=== PATIENT | female | born 1945 | race Caucasian/White ===

== ENCOUNTER 2018-01-29 09:50 | Day surgery (SDC) | payer OTHER ==
[~2018-01-29] VITALS: Ht 157.5 cm; Wt 72.1 kg
[~2018-01-29 09:50] MED LIST: CHOL10002 PO; HYDCHL25 PO; LEVSOD50 PO; MULTI VITAMIN1 EACH PO; PARO25 PO; POTCHL10ER PO; SIMV20 PO
== END 2018-01-29 22:44 | disposition home or self-care (01) ==
LOC: ORSCMMR 09:50 → ORD 11:00 → ORSCMMR 11:00
PROVIDERS: Internal Medicine Gastroenterology
PROC: 0DJD8ZZ Inspection of Lower Intestinal Tract, Via Natural or Artificial Opening Endoscopic (ICD-10-PCS; principal; 2018-01-29 11:00)
DX: R19.5 Other fecal abnormalities (principal); K64.8 Other hemorrhoids; K57.30 Diverticulosis of large intestine without perforation or abscess without bleeding; K63.89 Other specified diseases of intestine; P28.3 Primary sleep apnea of newborn; I10 Essential (primary) hypertension; E78.00 Pure hypercholesterolemia, unspecified; F32.9 Major depressive disorder, single episode, unspecified; E03.9 Hypothyroidism, unspecified; Z79.899 Other long term (current) drug therapy
CPT/HCPCS: J2250; J3010; J7030

== ENCOUNTER → 2018-04-29 | Outpatient (CLI) | payer OTHER | LOC: LAB SHORT 17:41 → LAB 17:41 | DX: N89.8 Other specified noninflammatory disorders of vagina (principal) | CPT/HCPCS: 87070; 87205 ==

== ENCOUNTER → 2018-10-21 | Outpatient (CLI) | payer OTHER | END | disposition home or self-care (01) | LOC: LAB SHORT 18:07 → LAB 18:07 | DX: N95.2 Postmenopausal atrophic vaginitis (principal) | CPT/HCPCS: 87070; 87205 ==

== ENCOUNTER 2019-05-01 16:20 | Inpatient (IN) | payer OTHER ==
[~2019-05-01] VITALS: Ht 157.5 cm; Wt 71.7 kg
[~2019-05-01 16:20] MED LIST changes: -PARO25 PO; +PARO30 PO; -SIMV20 PO; +Zocor20 MG PO
[2019-05-01 17:06] LABS: BASOPHILS ABSOLUTE AUTO 0.07 K/mm3 (0.00-0.23); BASOPHILS PERCENT AUTO 1 % (0-2); EOSINOPHILS ABSOLUTE AUTO 0.09 K/mm3 (0.00-0.68); EOSINOPHILS PERCENT AUTO 1 % (0-6); Hematocrit 32.3 % (33.0-51.0); Hemoglobin 10.4 g/dL (11.5-16.0); IMMATURE GRAN ABSOLUTE AUTO 0.04 K/mm3 (0.00-0.10); IMMATURE GRAN PERCENT AUTO 0 % (0-1); LYMPHOCYTES ABSOLUTE AUTO 1.94 K/mm3 (0.84-5.20); LYMPHOCYTES PERCENT AUTO 15 % (21-46); MONOCYTES ABSOLUTE AUTO 0.97 K/mm3 (0.16-1.47); MONOCYTES PERCENT AUTO 7 % (4-13); Mean Corpuscular HGB 29.9 pg (26.0-34.0); Mean Corpuscular HGB Conc 32.2 g/dL (31.5-36.5); Mean Corpuscular Volume 93 fL (80-100); Mean Platelet Volume 10.7 fL (9.1-12.4); NEUTROPHILS PERCENT AUTO 77 % (41-73); Platelet Count 239 K/mm3 (150-400); RDW Standard Deviation 47.9 fL (35.1-46.3); Red Blood Cell Count 3.48 M/mm3 (3.80-5.20); White Blood Cell Count 13.21 K/mm3 (4.00-11.30)
[2019-05-01 17:19] LABS: Alanine Aminotransfer (ALT/SGP 17 U/L (12-78); Albumin, Blood 2.9 g/dL (3.4-5.0); Albumin/Globulin Ratio 1.1 (0.8-1.8); Alk Phos 33 U/L (50-136); Anion Gap 5 mmol/L (6-16); Aspartate Aminotrans (AST/SGOT 19 U/L (12-37); Bilirubin, Total 0.3 mg/dL (0.1-1.0); Blood Urea Nitrogen 42 mg/dL (8-24); CO2, Blood 27 mmol/L (21-32); Calcium, Blood 7.8 mg/dL (8.5-10.1); Chloride, Blood 108 mmol/L (98-108); Globulin, Blood 2.6 g/dL (2.2-4.0); Glomerular Filtration Rate >60 (60-); Glucose, Blood 121 mg/dL (70-99); Potassium, Blood 3.2 mmol/L (3.5-5.5); Sodium, Blood 140 mmol/L (136-145); Total Protein, Blood 5.5 g/dL (6.4-8.2)
[2019-05-01] MEDS ORDERED: LEVSOD75 PO (17:38)
[2019-05-01] MEDS ORDERED: ESTRADIOL42.5 GM VAG (17:40)
[2019-05-01 18:27] LABS: International Normalized Ratio 1.03; Prothrombin Time Results 10.9 Sec (9.7-11.5)
[2019-05-01 21:27] LABS: Percent Saturation 23.5 % (15.0-50.0)
[2019-05-01 21:54] LABS: Hematocrit 30.7 % (33.0-51.0); Hemoglobin 9.9 g/dL (11.5-16.0); Mean Corpuscular HGB 30.1 pg (26.0-34.0); Mean Corpuscular HGB Conc 32.2 g/dL (31.5-36.5); Mean Corpuscular Volume 93 fL (80-100); Mean Platelet Volume 10.4 fL (9.1-12.4); Platelet Count 235 K/mm3 (150-400); RDW Standard Deviation 47.9 fL (35.1-46.3); Red Blood Cell Count 3.29 M/mm3 (3.80-5.20); White Blood Cell Count 13.06 K/mm3 (4.00-11.30)
--- NOTE | 2019-05-01 22:47 | NUR ---
PCU ADMIT PT BROUGHT TO PCU RM 04 FROM ER BY CAROL @ 2054. PT A&O X4. PT ABLE TO STAND AND AMBULATE FROM [facility] TO PCU BED INDEPENDENTLY W/ SBA FOR PRECAUTION. PT'S DAUGHTER AND SON-IN-LAW AT BEDSIDE. PT REPORTS BLACK STOOL WELL BLOODY EMESIS AND "PASSING OUT" AT HOME TODAY PRIOR TO HOSPITALIZATION. PT DENIES NAUSEA, LIGHTHEADEDNESS, DIZZINESS AT THIS TIME. PT VSS. PT NPO. GI CONSULT CALLED TO ANSWERING SERVICE. NS GTT INFUSING PER ORDERS X1 BAG. PT/FAMILY ORIENTED TO UNIT/CURRENT COURSE OF PLAN. WILL CONTINUE TO MONITOR AND PROVIDE CARE.
--- NOTE | 2019-05-02 00:58 | NUR ---
MD OLIVA IN ROOM TO SEE PT. W/ ORDERS FOR PT TO BE NPO W/ OKAY FOR WATER ONLY UNTIL STRICT NPO @ 0800 W/ PLAN FOR SCOPE TODAY.
[2019-05-02 04:33] LABS: Hematocrit 26.2 % (33.0-51.0); Hemoglobin 8.4 g/dL (11.5-16.0); Mean Corpuscular HGB 30.4 pg (26.0-34.0); Mean Corpuscular HGB Conc 32.1 g/dL (31.5-36.5); Mean Corpuscular Volume 95 fL (80-100); Mean Platelet Volume 10.9 fL (9.1-12.4); Platelet Count 206 K/mm3 (150-400); RDW Coefficient Variation 14.2 % (11.7-14.2); RDW Standard Deviation 49.1 fL (35.1-46.3); Red Blood Cell Count 2.76 M/mm3 (3.80-5.20); White Blood Cell Count 10.33 K/mm3 (4.00-11.30)
--- NOTE | 2019-05-02 05:49 | NUR ---
SHIFT SUMMARY PT A&O X4. VSS. PT NPO EXCEPT FOR WATER UNTIL COMPLETELY NPO @ 0800 FOR SCOPE TODAY. NO BM OR EMESIS THIS SHIFT. PT FAMILY AT BEDSIDE. WILL CONTINUE TO MONITOR AND PROVIDE CARE UNTIL REPORT OFF TO DAY SHIFT RN.
--- NOTE | 2019-05-02 07:32 | NUR ---
EMESIS & WEAKNESS PT C/O FEELING LIKE "I'M GOING TO PASS OUT" WHILE SITTING UPRIGHT IN BED FOLLOWED BY EPISODE OF DARK BROWN/RED LIQUID EMESIS. EPISODE OF INCONTINENCE W/ VOMITING. SKIN CLAMMY. PT ASSISTED BACK INTO DOSS'S POSITION. IV ZOFRAN AND PROTONIX PROVIDED. VSS, THOUGH BP LOWER, SEE VS. PT ASSISTED W/ IN BED SPONGE BATH AND ORAL CARE. PT CONTINUES TO BE NPO W/ WATER ONLY UNTIL COMPLETELY NPO @ 0800 FOR SCOPE TODAY. REPORT GIVEN TO DAY SHIFT RN. PT'S DAUGHTER AT BEDSIDE.
--- NOTE | 2019-05-02 08:30 | NUR ---
PT RESTING IN BED, DAUGHTER IN RM. HAD EPISODE OF NAUSEA AND EMESIS EARLIER THIS AM, DENIES NOW. DR. SANFORD IN . DISCUSSED EARLIER EPISODE, PT HAVING LOWER BP'S. REC'D ORDER FOR IVF AND CHANGED PO KCL TO IV SINCE PT NPO. ASSESS COMPLETE. AWAITING DR OLIVA FOR PROCEDURE THIS AM. CONT TO MONITOR.
--- NOTE | 2019-05-02 10:50 | NUR ---
PT OFF TO DAY SURGERY VIA CAROL
--- NOTE | 2019-05-02 11:14 | NUR ---
05/02/19 1114 Domenica Pedraza History, Chart, Medications and Allergies reviewed before start of procedure.PATIENT DETERMINED TO BE ASA APPROPRIATE FOR PROPOFOL SEDATION PRIOR TO START OF PROCEDURE BY .MONITOR INTACT WITH CONTINUOUS PULSE OXIMETRY AND INTERMITTENT BP.3-LEAD EKG REVIEWED WITH PHYSICIAN PRIOR TO START OF PROCEDURE.O2 VIA N/C INTACT THROUGHOUT SEDATION/PROCEDURE.
--- NOTE | 2019-05-02 17:05 | NUR ---
REPORT GIVEN TO NOC RN, DORETHA. PT RESTING IN BED. DAUGHTER IN RM. VSS WITH BP IMPROVED. PROTONIX GTT INFUSING. PT HAD UPPER ENDO EARLIER WITH DR OLIVA, FOUND TO HAVE LG GASTRIC ULCER, TOOK CLIPS, EPI, AND CAUDERIZING TO RESOLVE ACTIVE BLEEDING PER . NO NAUSEA, EMESIS, OR ADDITIONAL MAROON STOOLS SINCE PROCEDURE. DORETHA TO ASSUME CARE FOR REST OF SHIFT AND T/O NOC.
[2019-05-02 18:20] LABS: Mean Corpuscular HGB 30.4 pg (26.0-34.0); Mean Corpuscular HGB Conc 32.6 g/dL (31.5-36.5); Mean Corpuscular Volume 94 fL (80-100); Mean Platelet Volume 10.6 fL (9.1-12.4); Platelet Count 162 K/mm3 (150-400); RDW Coefficient Variation 14.3 % (11.7-14.2); RDW Standard Deviation 48.4 fL (35.1-46.3); Red Blood Cell Count 1.84 M/mm3 (3.80-5.20); White Blood Cell Count 13.35 K/mm3 (4.00-11.30)
[2019-05-02 18:53] LABS: Hemoglobin 5.6 g/dL (11.5-16.0)
[2019-05-02 18:55] LABS: Hematocrit 17.2 % (33.0-51.0)
--- NOTE | 2019-05-02 19:17 | NUR ---
CARE ASSUMPTION / CRITICAL H&H PT A&O X4. BP LOW AT 98/50, OTHERWISE VSS. PT VERY WEAK IN BED. DENIES NAUSEA AT THIS TIME. PT NPO W/ OKAY FOR WATER AND ICE CHIPS ONLY. PROTONIX GTT AND NS GTT INFUSING PER ORDERS. CALL TO ANA WHITTAKER @ 190 TO REPORT HGB: 5.6 & HCT: 17.2, ANA WHITTAKER W/ ORDERS TO TRANSFUSE 2 UNITS PRBC'S. WILL CONTINUE TO MONITOR AND PROVIDE CARE.
[2019-05-03 05:30] LABS: Hematocrit 24.5 % (33.0-51.0); Hemoglobin 8.1 g/dL (11.5-16.0)
[2019-05-03 05:49] LABS: Anion Gap 5 mmol/L (6-16); Blood Urea Nitrogen 22 mg/dL (8-24); Bun/Creatinine Ratio 30.9 (12.0-20.0); CO2, Blood 25 mmol/L (21-32); Calcium, Blood 7.2 mg/dL (8.5-10.1); Chloride, Blood 117 mmol/L (98-108); Creatinine, Blood 0.71 mg/dL (0.40-1.00); Glomerular Filtration Rate >60 (60-); Glucose, Blood 82 mg/dL (70-99); Potassium, Blood 3.5 mmol/L (3.5-5.5); Sodium, Blood 147 mmol/L (136-145)
--- NOTE | 2019-05-03 05:52 | NUR ---
SHIFT SUMMARY PT A&O X4. 2 UNITS PRBC'S ADMINISTERED THIS SHIFT. PT TOLERATED WELL. PT CONTINUES TO BE VERY WEAK, BUT STRENGTH IMPROVING. PT USING BED LEMUS, ADVANCED TO BEDSIDE COMMODE THIS AM W/ 1-2 PERSON ASSIST. VSS. PT CONTINUES TO BE NPO, DRINKING WATER AND ICE CHIPS ONLY. NS GTT AND PROTONIX GTT INFUSING PER ORDERS. WILL CONTINUE TO MONITOR AND PROVIDE CARE UNTIL REPORT OFF TO DAY SHIFT RN.
[2019-05-03 16:12] LABS: Hematocrit 24.6 % (33.0-51.0)
--- NOTE | 2019-05-03 17:38 | NUR ---
SHIFT SUMMARY PT ALERT AND ORIENTED. VS STABLE. O2 SATS REMAIN ABOVE 90% ON RA. PT DENIES ANY PAIN. HGB AT [address] OLIVA NOTIFIED. PT HAD ONE BM THIS SHIFT THAT WAS DARK MAROON AND JELLY LIKE. PT ABLE TO TRANSFER TO BSC NEEDED WITH SBA AND WITHOUT FEELING DIZZY. WILL CONTINUE TO MONITOR AND REPORT TO ONCOMING RN. CALL LIGHT IN REACH.
[2019-05-03 18:33] LABS: Hematocrit 24.3 % (33.0-51.0); Hemoglobin 7.9 g/dL (11.5-16.0); Mean Corpuscular HGB 30.5 pg (26.0-34.0); Mean Corpuscular HGB Conc 32.5 g/dL (31.5-36.5); Mean Corpuscular Volume 94 fL (80-100); Mean Platelet Volume 10.8 fL (9.1-12.4); Platelet Count 154 K/mm3 (150-400); RDW Coefficient Variation 15.2 % (11.7-14.2); RDW Standard Deviation 52.5 fL (35.1-46.3); Red Blood Cell Count 2.59 M/mm3 (3.80-5.20); White Blood Cell Count 9.86 K/mm3 (4.00-11.30)
--- NOTE | 2019-05-04 00:53 | NUR ---
ASSUMED CARE. PT RESTING QUIETLY, EASILY AROUSED. VSS
[2019-05-04 04:13] LABS: BASOPHILS ABSOLUTE AUTO 0.07 K/mm3 (0.00-0.23); BASOPHILS PERCENT AUTO 1 % (0-2); EOSINOPHILS ABSOLUTE AUTO 0.47 K/mm3 (0.00-0.68); EOSINOPHILS PERCENT AUTO 5 % (0-6); Hematocrit 24.1 % (33.0-51.0); Hemoglobin 7.8 g/dL (11.5-16.0); IMMATURE GRAN ABSOLUTE AUTO 0.04 K/mm3 (0.00-0.10); IMMATURE GRAN PERCENT AUTO 1 % (0-1); LYMPHOCYTES PERCENT AUTO 25 % (21-46); MONOCYTES ABSOLUTE AUTO 0.74 K/mm3 (0.16-1.47); MONOCYTES PERCENT AUTO 8 % (4-13); Mean Corpuscular HGB 29.9 pg (26.0-34.0); Mean Corpuscular HGB Conc 32.4 g/dL (31.5-36.5); Mean Corpuscular Volume 92 fL (80-100); Mean Platelet Volume 10.6 fL (9.1-12.4); NEUTROPHILS ABSOLUTE AUTO 5.35 K/mm3 (1.96-9.15); NEUTROPHILS PERCENT AUTO 60 % (41-73); Platelet Count 156 K/mm3 (150-400); RDW Coefficient Variation 14.8 % (11.7-14.2); RDW Standard Deviation 50.2 fL (35.1-46.3); Red Blood Cell Count 2.61 M/mm3 (3.80-5.20); White Blood Cell Count 8.87 K/mm3 (4.00-11.30)
--- NOTE | 2019-05-04 05:54 | NUR ---
SHIFT SUMMARY: PT SLEPT ALL NIGHT SINCE I CAME IN. NO ISSUES OR PAIN ALL NIGHT. VSS.
--- NOTE | 2019-05-04 17:32 | NUR ---
SHIFT SUMMARY PT ALERT AND ORIENTED. VS STABLE. O2 SATS REMAIN ABOVE 90% ON RA. PT DENIES ANY PAIN. PROTONIX GTT INFUSING PER ORDERS. PT UP WALKING THROUGH THE HALLS TODAY. WILL CONITNUE TO MONITOR AND REPORT TO ONCOMING RN. CALL LIGHT IN REACH.
--- NOTE | 2019-05-04 19:58 | NUR ---
PT RESTING COMFORTABLY IN BED, DENIES PAIN, NAUSEA OR GI UPSET, PROTONIX INFUSING AT 10ML/HR VIA RFA, DAUGHTER AT SIDE AND INTENDS SPEND NIGHT AT SIDE.
[2019-05-05 03:44] LABS: BASOPHILS ABSOLUTE AUTO 0.06 K/mm3 (0.00-0.23); BASOPHILS PERCENT AUTO 1 % (0-2); EOSINOPHILS ABSOLUTE AUTO 0.42 K/mm3 (0.00-0.68); EOSINOPHILS PERCENT AUTO 4 % (0-6); Hematocrit 26.1 % (33.0-51.0); Hemoglobin 8.3 g/dL (11.5-16.0); IMMATURE GRAN ABSOLUTE AUTO 0.04 K/mm3 (0.00-0.10); IMMATURE GRAN PERCENT AUTO 0 % (0-1); LYMPHOCYTES ABSOLUTE AUTO 2.17 K/mm3 (0.84-5.20); LYMPHOCYTES PERCENT AUTO 19 % (21-46); MONOCYTES ABSOLUTE AUTO 0.96 K/mm3 (0.16-1.47); MONOCYTES PERCENT AUTO 8 % (4-13); Mean Corpuscular HGB 29.4 pg (26.0-34.0); Mean Corpuscular HGB Conc 31.8 g/dL (31.5-36.5); Mean Corpuscular Volume 93 fL (80-100); Mean Platelet Volume 10.7 fL (9.1-12.4); NEUTROPHILS ABSOLUTE AUTO 7.93 K/mm3 (1.96-9.15); NEUTROPHILS PERCENT AUTO 69 % (41-73); Platelet Count 190 K/mm3 (150-400); RDW Coefficient Variation 14.5 % (11.7-14.2); RDW Standard Deviation 48.5 fL (35.1-46.3); Red Blood Cell Count 2.82 M/mm3 (3.80-5.20); White Blood Cell Count 11.58 K/mm3 (4.00-11.30)
[2019-05-05 04:04] LABS: Anion Gap 4 mmol/L (6-16); Blood Urea Nitrogen 12 mg/dL (8-24); Bun/Creatinine Ratio 16.1 (12.0-20.0); CO2, Blood 28 mmol/L (21-32); Chloride, Blood 113 mmol/L (98-108); Creatinine, Blood 0.75 mg/dL (0.40-1.00); Glomerular Filtration Rate >60 (60-); Glucose, Blood 103 mg/dL (70-99); Potassium, Blood 3.5 mmol/L (3.5-5.5); Sodium, Blood 145 mmol/L (136-145)
--- NOTE | 2019-05-05 04:16 | NUR ---
SHIFT SUMMARY: 73 Y/O FEMALE RESTED COMFORTABLY ALL SHIFT WITH NO S/S BLEEDING OR BLOODY NOTED OR VOICED, HG=8.3 THIS AM, PROTONIX CONTINUES TO INFUSE AT 10ML/HR, DAUGHTER SPENT NIGHT AT SIDE AND VERY SUPPORTIVE, ABLE TO AMBULATE BATHROOM AND BACK PER SELF WITHOUT ISSUE, DENIES PAIN OR NAUSEA, BED LOW POSITION, CALL LIGHT AT SIDE.
[2019-05-05] MEDS ORDERED: OMEPRAZOLE20 MG PO (11:25)
--- NOTE | 2019-05-05 12:13 | NUR ---
DISCHARGE PT IS EXCITED FOR D/C. HAS A F/U WITH PCP TOMORROW. SCRIPT FOR NEW MED GIVEN BY DR OLIVA. ESCORTED OUT VIA W/C.
== END 2019-05-05 12:14 | disposition home or self-care (01) | DRG 378 ==
LOC: ER 16:20 → PCU 16:21
PROVIDERS: Emergency Medicine; Internal Medicine Gastroenterology; Nurse Practitioner Acute Care; ADMIT Hospitalist
PROC: 0D598ZZ Destruction of Duodenum, Via Natural or Artificial Opening Endoscopic (ICD-10-PCS; principal; 2019-05-02 10:30)
DX: K26.4 Chronic or unspecified duodenal ulcer with hemorrhage (principal); D62 Acute posthemorrhagic anemia; I10 Essential (primary) hypertension; E78.5 Hyperlipidemia, unspecified; G47.30 Sleep apnea, unspecified; F32.9 Major depressive disorder, single episode, unspecified; M19.90 Unspecified osteoarthritis, unspecified site; E03.9 Hypothyroidism, unspecified; E87.6 Hypokalemia; E78.00 Pure hypercholesterolemia, unspecified; Z96.641 Presence of right artificial hip joint
CPT/HCPCS: 36415; 36430; 71046; 74177; 80048; 80053; 82272; 82728; 83540; 83550; 83605; 83735; 85014; 85018; 85025; 85027; 85610; 85730; 86850; 86900; 86901; 86923; 93005; 93010; 96361; 96374-59; 96375; 96376; 99285-25; C9113; G0378; J2405; J2704; J3480; J7030; J7120; P9016; Q9967

== ENCOUNTER → 2019-05-06 | Outpatient (CLI) | payer OTHER ==
[~2019-05-06] MED LIST changes: +ESTRADIOL42.5 GM VAG; +LEVSOD75 PO; +OMEPRAZOLE20 MG PO
[2019-05-06 14:35] LABS: Source, Urine Clean Catch
[2019-05-06 16:33] LABS: Appearance, Urine Hazy (Clear); Bilirubin, Urine Neg (Neg); Blood, Urine 3+ (Neg); Color, Urine Yellow (P-Yellow); Glucose Qualitative, Urine Neg (Neg); Ketones, Urine Neg (Neg); Leukocyte Esterase, Urine 3+ (Neg); Nitrite, Urine Neg (Neg); Protein, Urine 2+ (Neg); Specific Gravity, Urine 1.015 (1.003-1.022); Urobilinogen, Urine 2+ (Normal); pH, Urine 6.5 (5.0-8.0)
[2019-05-06 17:17] LABS: White Blood Cells, Urine 50-100 /hpf (0-5)
[2019-05-06 17:18] LABS: Squamous Epithelial Cells Many /hpf (Few)
[2019-05-06 17:19] LABS: Bacteria Many /hpf
== END ==
LOC: LAB SHORT 11:30 → LAB 11:30
PROVIDERS: Nurse Practitioner Family
DX: R30.0 Dysuria (principal)
CPT/HCPCS: 81001; 87077; 87086; 87186

== ENCOUNTER → 2019-05-23 | Outpatient (CLI) | payer OTHER | END | disposition home or self-care (01) | LOC: LAB SHORT 17:10 → LAB EV 17:10 | DX: N39.0 Urinary tract infection, site not specified (principal) | CPT/HCPCS: 87077; 87086; 87186 ==

== ENCOUNTER 2019-09-03 16:09 | Inpatient (IN) | payer OTHER ==
[~2019-09-03] VITALS: Ht 154.9 cm; Wt 67.2 kg
[~2019-09-03 16:09] MED LIST changes: +PROBIOTIC PO; +THERA1 EACH PO
--- NOTE | 2019-09-06 06:54 | NUR ---
PT ADMITTED TO [facility] WITH PLANNED SURGERY. LUNG SOUNDS CLEAR. PT STATES ONLY 4 DAYS OF MUPIROCIN OINMENT TO N[facility]ES AND [address]ERS[address] DR. CASEY INFORMED. STATES TO DO OINTMENT TO [facility] THIS AM.
--- NOTE | 2019-09-06 07:05 | NUR ---
NOZIN TO NARES BILATERLLY PER ORDERS.
--- NOTE | 2019-09-06 12:09 | NUR ---
PT ARRIVED TO THE ROOM AT APPROXIMATELY 1150. PT DROWSY BUT AWAKE AND ORIENTED. FAMILY PRESENT FOR SUPPORT. PT REPORTS PAIN AT 8/10, TORADOL GIVEN TO MANAGE PAIN. SHE IS ON 3L O2 VIA NC. FAMILY ENCOURAGED TO TO DEEP BREATHE, THEY ARE VERY SUPPORTIVE. PT DENIES NAUSEA. ENCOURAGED TO TRY CLEAR LIQUIDS AND CRACKERS SO SHE CAN HAVE A PAIN PILL. WILL CONTINUE TO MONITOR.
--- NOTE | 2019-09-06 14:00 | NUR ---
Patient gave student nurse permission to provide care on 09/07/19.
--- NOTE | 2019-09-06 16:23 | NUR ---
DR. CASEY NOTIFIED OF PT WAS UNABLE TO ADDUCT OR PERFORM SHORT ARCH QUAD EXERCISE DURING PHYSICAL THERAPY. PT ALSO REPORTS QUAD AREA IS NUMB. DR. CASEY NOTIFIED OF LOW BP, WILL GIVE BOLUS IN AN EFFORT TO IMPROVE BP.
--- NOTE | 2019-09-06 18:56 | NUR ---
SHIFT SUMMARY PAIN HAS BEEN MANAGED WITH PO PAIN MEDICATION POST-OP. BP HAS BEEN SLIGHTLY LOW. BOLUS GIVEN, SBP MAINTAINING >90. PT WAS UNABLE TO GET OOB POST-OP R/T QUAD WEAKNESS, DR. CASEY NOTIFIED. VSS. WILL MONITOR UNTIL REPORT TO ONCOMING RN.
--- NOTE | 2019-09-07 04:53 | NUR ---
SHIFT SUMMARY POD 1 S/P L TORIE; AQUACEL DRESSING C.D.I. W/ICE THERAPY IN PLACE. PAIN MANAGED WITH 1 TAB OXYCODONE. AMBULATED IN HALLWAY AND TO BATHROOM WITH GB/FWW. TOLERATING PO INTAKE, DENIES N/V. IS CURRENTLY RESTING IN CHAIR WITH CALL LIGHT IN REACH. WILL CONT TO MONITOR AND GIVE REPORT TO ONCOMING RN.
[2019-09-07 05:51] LABS: BASOPHILS ABSOLUTE AUTO 0.01 K/mm3 (0.00-0.23); BASOPHILS PERCENT AUTO 0 % (0-2); EOSINOPHILS PERCENT AUTO 0 % (0-6); Hematocrit 25.6 % (33.0-51.0); Hemoglobin 8.1 g/dL (11.5-16.0); IMMATURE GRAN ABSOLUTE AUTO 0.05 K/mm3 (0.00-0.10); IMMATURE GRAN PERCENT AUTO 0 % (0-1); LYMPHOCYTES ABSOLUTE AUTO 1.78 K/mm3 (0.84-5.20); LYMPHOCYTES PERCENT AUTO 15 % (21-46); MONOCYTES PERCENT AUTO 10 % (4-13); Mean Corpuscular HGB 27.8 pg (26.0-34.0); Mean Corpuscular HGB Conc 31.6 g/dL (31.5-36.5); Mean Corpuscular Volume 88 fL (80-100); Mean Platelet Volume 10.6 fL (9.1-12.4); NEUTROPHILS ABSOLUTE AUTO 8.89 K/mm3 (1.96-9.15); NEUTROPHILS PERCENT AUTO 75 % (41-73); Platelet Count 199 K/mm3 (150-400); RDW Coefficient Variation 16.2 % (11.7-14.2); RDW Standard Deviation 51.4 fL (35.1-46.3); Red Blood Cell Count 2.91 M/mm3 (3.80-5.20); White Blood Cell Count 11.93 K/mm3 (4.00-11.30)
[2019-09-07 06:12] LABS: Anion Gap 6 mmol/L (6-16); Blood Urea Nitrogen 14 mg/dL (8-24); Bun/Creatinine Ratio 16.7 (12.0-20.0); CO2, Blood 28 mmol/L (21-32); Calcium, Blood 7.8 mg/dL (8.5-10.1); Chloride, Blood 106 mmol/L (98-108); Creatinine, Blood 0.84 mg/dL (0.40-1.00); Glomerular Filtration Rate >60 (60-); Glucose, Blood 128 mg/dL (70-99); Potassium, Blood 3.3 mmol/L (3.5-5.5); Sodium, Blood 140 mmol/L (136-145)
--- NOTE | 2019-09-07 10:32 | NUR ---
09/07/19 1032 Rosa Berry VERIFICATIONS: EDIT CHART.
--- NOTE | 2019-09-07 11:00 | NUR ---
UGO PAINTING MANAGER CONSULTED FOR LOW BLOOD PRESSURE. BOLUS STARTED. BP REMAINS LOW. WILL CONTINUE TO MONITOR.
[2019-09-07 11:05] LABS: Hematocrit 25.4 % (33.0-51.0); Mean Corpuscular HGB 27.8 pg (26.0-34.0); Mean Corpuscular HGB Conc 31.5 g/dL (31.5-36.5); Mean Corpuscular Volume 88 fL (80-100); Mean Platelet Volume 10.2 fL (9.1-12.4); Platelet Count 189 K/mm3 (150-400); Red Blood Cell Count 2.88 M/mm3 (3.80-5.20); White Blood Cell Count 10.86 K/mm3 (4.00-11.30)
[2019-09-07 11:37] LABS: International Normalized Ratio 1.02; Prothrombin Time Results 10.9 Sec (9.7-11.5)
--- NOTE | 2019-09-07 11:42 | NUR ---
THIGH CIRCUMFERENCE PT'S THIGH WAS MEASURED AND FOUND TO BE 24 3/4 INCH. BRUISING ON L THIGH APPEARS TO BE LARGER THAN WITH MORNING ASSESSMENT.
--- NOTE | 2019-09-07 14:19 | NUR ---
ORTHOSTATIC BP BP DROPPED TO 95/42 WHEN PT SAT UP FOR THERAPY. [employer]GO AIR VALUE TESTER NOTIFIED AND 1 UNIT PRBC REQUESTED. WILL ADMINISTER BLOOD PER ORDER. WILL CONTINUE TO MONITOR.
--- NOTE | 2019-09-07 17:38 | NUR ---
SHIFT SUMMARY PAIN HAS BEEN MANAGED WITH PO PAIN MEDICATION. BP HAS BEEN LOW T/O THE DAY. PT REQUIRED MULTIPLE FLUID BOLUSES AND IS CURRENTLY GETTING 1 UNIT PRBC. PT WAS ABLE TO WORK WITH THERAPY TODAY AND IS A 1 PERSON ASSIST WITH GAIT BELT AND WALKER. PAIN HAS BEEN MINIMAL AND IS MANAGED WITH TYLENOL AND TORADOL. PLAN FOR HOME TOMORROW IF BP AND H&H REMAIN STABLE. PT'S THIGH CIRCUMFERENCE HAS REMAINED UNCHANGED AT 24 3/4 INCHES; BRUISING HAS NOT INCREASED IN SIZE SINCE THIS MORNING. PT HAS NO SIGNS OF BLEEDING. VSS. WILL MONITOR UNTIL REPORT TO ONCOMING RN.
--- NOTE | 2019-09-07 18:39 | NUR ---
UNIT OF PRBC HAS BEEN TRANSFUSED. PT TOLERATED WELL. VSS. WILL CONTINUE TO MONITOR.
[2019-09-07 20:30] LABS: Hematocrit 30.7 % (33.0-51.0); Hemoglobin 9.9 g/dL (11.5-16.0)
--- NOTE | 2019-09-08 04:09 | NUR ---
SHIFT SUMMARY POD 2 L TORIE. PT UP AND AMBULATING TO RESTROOM. FOLLOWS HIP PRECAUTIONS AND USES WALKER/GB WELL. TOLERATING PO. POLAR BRODIE IN PLACE. MEDICATED FOR PAIN X1 DURING SHIFT. VOIDING WELL. AAOX4, VSS. BP HAS REMAINED WNL DURING SHIFT.
[2019-09-08 04:33] LABS: Hematocrit 28.8 % (33.0-51.0); Hemoglobin 9.3 g/dL (11.5-16.0); Mean Corpuscular HGB 27.9 pg (26.0-34.0); Mean Corpuscular HGB Conc 32.3 g/dL (31.5-36.5); Mean Corpuscular Volume 87 fL (80-100); Mean Platelet Volume 10.6 fL (9.1-12.4); Platelet Count 196 K/mm3 (150-400); RDW Coefficient Variation 15.7 % (11.7-14.2); RDW Standard Deviation 49.5 fL (35.1-46.3); Red Blood Cell Count 3.33 M/mm3 (3.80-5.20); White Blood Cell Count 10.92 K/mm3 (4.00-11.30)
[2019-09-08 05:05] LABS: Anion Gap 4 mmol/L (6-16); Blood Urea Nitrogen 12 mg/dL (8-24); Bun/Creatinine Ratio 16.5 (12.0-20.0); CO2, Blood 27 mmol/L (21-32); Calcium, Blood 7.7 mg/dL (8.5-10.1); Chloride, Blood 113 mmol/L (98-108); Creatinine, Blood 0.73 mg/dL (0.40-1.00); Glomerular Filtration Rate >60 (60-); Glucose, Blood 101 mg/dL (70-99); Potassium, Blood 3.4 mmol/L (3.5-5.5); Sodium, Blood 144 mmol/L (136-145)
[2019-09-08] MEDS ORDERED: ACET500 PO (12:43)
[2019-09-08] MEDS ORDERED: ASPI81CH PO (12:46)
[2019-09-08] MEDS ORDERED: OXYC5 PO (12:47)
--- NOTE | 2019-09-08 13:20 | NUR ---
DISCHARGE: PT EATING AND DRINKING, VOIDING, PASSING GAS. PT REPORTS PAIN WELL CONTROLLED. PT/FAMILY REPORTS HAVING APPR EQUIP AT HOME, REPORTS UNDERSTANDING OF DISCHARGE INSTRUCTIONS INCLUDING POLAR PAC AND DRESSING CHANGES. PT SENT WITH BELONGINGS, POLAR PAC AND DRESSING SUPPLIES. IV OUT WNL.
== END 2019-09-08 13:40 | disposition home or self-care (01) | DRG 470 ==
LOC: SURS 09-06 05:34 → PRE IP 09-06 07:30 → SURS 09-06 11:45
PROVIDERS: Nurse Practitioner Acute Care; ADMIT Orthopaedic Surgery
PROC: 0SRB04A Replacement of Left Hip Joint with Ceramic on Polyethylene Synthetic Substitute, Uncemented, Open Approach (ICD-10-PCS; principal; 2019-09-06 07:30)
DX: M16.12 Unilateral primary osteoarthritis, left hip (principal); I95.81 Postprocedural hypotension; I10 Essential (primary) hypertension; E03.9 Hypothyroidism, unspecified; G47.33 Obstructive sleep apnea (adult) (pediatric); E87.6 Hypokalemia; E86.0 Dehydration; K21.9 Gastro-esophageal reflux disease without esophagitis; F32.9 Major depressive disorder, single episode, unspecified
CPT/HCPCS: 36415; 71045; 72170; 80048; 82330; 82533; 83735; 84443; 85014; 85018; 85025; 85027; 85610; 86850; 86900; 86901; 86923; 88300; 94640; 94762; 97110; 97116; 97162; C1776; J0171; J0690; J0735; J1100; J1885; J2250; J2405; J2704; J2710; J2765; J2795; J3010; J7030; J7120; P9016

== ENCOUNTER 2021-03-06 08:03 | Day surgery (SDC) | payer OTHER ==
[~2021-03-06] VITALS: Ht 157.5 cm; Wt 66.2 kg
[~2021-03-06 08:03] MED LIST changes: +ACET500 PO; +ASPI81CH PO; +OXYC5 PO
== END 2021-03-06 09:44 | disposition home or self-care (01) ==
LOC: ORSCSDS 08:03
PROVIDERS: Internal Medicine Gastroenterology
PROC: 0DB68ZX Excision of Stomach, Via Natural or Artificial Opening Endoscopic, Diagnostic (ICD-10-PCS; principal; 2021-03-06 09:15)
DX: K26.0 Acute duodenal ulcer with hemorrhage (principal); K31.7 Polyp of stomach and duodenum; I10 Essential (primary) hypertension; G47.33 Obstructive sleep apnea (adult) (pediatric); E03.9 Hypothyroidism, unspecified; F32.9 Major depressive disorder, single episode, unspecified; E78.00 Pure hypercholesterolemia, unspecified; J45.909 Unspecified asthma, uncomplicated; Z79.899 Other long term (current) drug therapy
CPT/HCPCS: 88305; 88341; 88342; J2704; J7120

== ENCOUNTER → 2021-11-15 | Outpatient (CLI) | payer OTHER ==
[2021-11-15 14:55] LABS: BASOPHILS ABSOLUTE AUTO 0.05 K/mm3 (0.00-0.23); BASOPHILS PERCENT AUTO 1 % (0-2); EOSINOPHILS ABSOLUTE AUTO 0.12 K/mm3 (0.00-0.68); EOSINOPHILS PERCENT AUTO 2 % (0-6); Hematocrit 41.3 % (33.0-51.0); Hemoglobin 13.8 g/dL (11.5-16.0); IMMATURE GRAN ABSOLUTE AUTO 0.01 K/mm3 (0.00-0.10); IMMATURE GRAN PERCENT AUTO 0 % (0-1); LYMPHOCYTES ABSOLUTE AUTO 1.87 K/mm3 (0.84-5.20); LYMPHOCYTES PERCENT AUTO 25 % (21-46); MONOCYTES ABSOLUTE AUTO 0.81 K/mm3 (0.16-1.47); MONOCYTES PERCENT AUTO 11 % (4-13); Mean Corpuscular HGB 29.4 pg (26.0-34.0); Mean Corpuscular HGB Conc 33.4 g/dL (31.5-36.5); Mean Corpuscular Volume 88 fL (80-100); Mean Platelet Volume 10.4 fL (9.1-12.4); NEUTROPHILS ABSOLUTE AUTO 4.62 K/mm3 (1.96-9.15); NEUTROPHILS PERCENT AUTO 62 % (41-73); Platelet Count 246 K/mm3 (150-400); RDW Coefficient Variation 13.9 % (11.7-14.2); RDW Standard Deviation 45.3 fL (35.1-46.3); White Blood Cell Count 7.48 K/mm3 (4.00-11.30)
[2021-11-15 16:45] LABS: Free Thyroxine 0.94 ng/dL (0.70-1.60); Thyroid Stimulating Hormone 2.7 uIU/mL (0.360-4.800)
== END ==
LOC: LAB SHORT 12:38
PROVIDERS: Student in an Organized Health Care Education/Training Program
DX: R53.83 Other fatigue (principal)
CPT/HCPCS: 84439; 84443; 85025

== ENCOUNTER → 2022-03-27 | Outpatient (CLI) | payer MEDICARE ==
[~2022-03-27] MED LIST changes: +AMOCLA875 PO
[2022-03-27 14:10] LABS: BASOPHILS ABSOLUTE AUTO 0.04 K/mm3 (0.00-0.23); BASOPHILS PERCENT AUTO 0 % (0-2); EOSINOPHILS ABSOLUTE AUTO 0.21 K/mm3 (0.00-0.68); EOSINOPHILS PERCENT AUTO 2 % (0-6); Hematocrit 38.5 % (33.0-51.0); Hemoglobin 12.7 g/dL (11.5-16.0); IMMATURE GRAN ABSOLUTE AUTO 0.02 K/mm3 (0.00-0.10); IMMATURE GRAN PERCENT AUTO 0 % (0-1); LYMPHOCYTES ABSOLUTE AUTO 1.73 K/mm3 (0.84-5.20); LYMPHOCYTES PERCENT AUTO 18 % (21-46); MONOCYTES ABSOLUTE AUTO 0.95 K/mm3 (0.16-1.47); MONOCYTES PERCENT AUTO 10 % (4-13); Mean Corpuscular HGB 29.8 pg (26.0-34.0); Mean Corpuscular Volume 90 fL (80-100); Mean Platelet Volume 10.1 fL (9.1-12.4); NEUTROPHILS ABSOLUTE AUTO 6.89 K/mm3 (1.96-9.15); NEUTROPHILS PERCENT AUTO 70 % (41-73); Platelet Count 246 K/mm3 (150-400); RDW Coefficient Variation 15.4 % (11.7-14.2); Red Blood Cell Count 4.26 M/mm3 (3.80-5.20); White Blood Cell Count 9.84 K/mm3 (4.00-11.30)
[2022-03-27 14:23] LABS: Albumin, Blood 3.3 g/dL (3.4-5.0); Albumin/Globulin Ratio 0.9 (0.8-1.8); Bilirubin, Total 0.6 mg/dL (0.1-1.0); Bun/Creatinine Ratio 25.8 (12.0-20.0); Calcium, Blood 8.8 mg/dL (8.5-10.1); Creatinine, Blood 0.66 mg/dL (0.40-1.00); Globulin, Blood 3.7 g/dL (2.2-4.0); Potassium, Blood 4.1 mmol/L (3.5-5.5)
== END | disposition home or self-care (01) ==
LOC: LAB SHORT 14:04
PROVIDERS: Physician Assistant Surgical
DX: R10.9 Unspecified abdominal pain (principal)
CPT/HCPCS: 80053; 83690; 85025

== ENCOUNTER 2022-03-29 16:18 | Emergency (ER) | payer MEDICARE ==
[~2022-03-29] VITALS: Ht 157.5 cm; Wt 62.6 kg
[~2022-03-29 16:18] MED LIST changes: -AMOCLA875 PO
[2022-03-29 17:30] LABS: BASOPHILS ABSOLUTE AUTO 0.04 K/mm3 (0.00-0.23); BASOPHILS PERCENT AUTO 0 % (0-2); EOSINOPHILS ABSOLUTE AUTO 0.11 K/mm3 (0.00-0.68); EOSINOPHILS PERCENT AUTO 1 % (0-6); IMMATURE GRAN ABSOLUTE AUTO 0.04 K/mm3 (0.00-0.10); IMMATURE GRAN PERCENT AUTO 0 % (0-1); LYMPHOCYTES ABSOLUTE AUTO 1.36 K/mm3 (0.84-5.20); LYMPHOCYTES PERCENT AUTO 9 % (21-46); MONOCYTES ABSOLUTE AUTO 0.81 K/mm3 (0.16-1.47); MONOCYTES PERCENT AUTO 5 % (4-13); Mean Corpuscular HGB 29.3 pg (26.0-34.0); Mean Corpuscular HGB Conc 32.5 g/dL (31.5-36.5); Mean Corpuscular Volume 90 fL (80-100); NEUTROPHILS ABSOLUTE AUTO 12.81 K/mm3 (1.96-9.15); NEUTROPHILS PERCENT AUTO 84 % (41-73); Platelet Count 283 K/mm3 (150-400); RDW Coefficient Variation 14.7 % (11.7-14.2); RDW Standard Deviation 48.8 fL (35.1-46.3); Red Blood Cell Count 4.43 M/mm3 (3.80-5.20); White Blood Cell Count 15.17 K/mm3 (4.00-11.30)
[2022-03-29 17:59] LABS: Albumin, Blood 3.8 g/dL (3.4-5.0); Albumin/Globulin Ratio 1.1 (0.8-1.8); Bilirubin, Total 0.5 mg/dL (0.1-1.0); Bun/Creatinine Ratio 21.5 (12.0-20.0); Creatinine, Blood 0.79 mg/dL (0.40-1.00); Globulin, Blood 3.4 g/dL (2.2-4.0); Potassium, Blood 3.5 mmol/L (3.5-5.5); Total Protein, Blood 7.2 g/dL (6.4-8.2)
[2022-03-29 18:48] LABS: Source, Urine Clean Catch
[2022-03-29 18:51] LABS: Appearance, Urine Hazy (Clear); Bilirubin, Urine Neg (Neg); Blood, Urine Neg (Neg); Color, Urine Yellow (P-Yellow); Glucose Qualitative, Urine Neg (Neg); Ketones, Urine 1+ (Neg); Leukocyte Esterase, Urine Neg (Neg); Nitrite, Urine Neg (Neg); Protein, Urine Neg (Neg); Specific Gravity, Urine 1.015 (1.003-1.022); Urobilinogen, Urine NORM (Normal)
[2022-03-29 19:14] LABS: Amorphous Light (0-Heavy); Bacteria Few /hpf; Red Blood Cells, Urine 0-2 /hpf (0-2); Squamous Epithelial Cells Few /hpf (Few); White Blood Cells, Urine 0-2 /hpf (0-5)
[2022-03-29] MEDS ORDERED: AMOCLA875 PO (21:56)
== END 2022-03-29 22:38 | disposition home or self-care (01) ==
LOC: ER 16:18
PROVIDERS: Physician Assistant
DX: K57.32 Diverticulitis of large intestine without perforation or abscess without bleeding (principal); I10 Essential (primary) hypertension; E03.9 Hypothyroidism, unspecified; G47.30 Sleep apnea, unspecified; Z79.899 Other long term (current) drug therapy
CPT/HCPCS: 36415; 74176; 80053; 81001; 83690; 85025; A9270; J1885; J2405; J7030